=== PATIENT | female | born 2000 | race Two or more races ===

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

== ENCOUNTER 2020-02-03 18:26 | Emergency (ER) | payer MEDICAID, OTHER ==
[2020-02-03] MEDS ORDERED: RINGERS SOLUTION,LACTATED 1,000 ML IV ONE (18:39)
--- NOTE | 2020-02-03 18:41 | ER Document Report ---
ED Medical Screen (RME) - General Chief Complaint: Abdominal Pain Stated Complaint: LEFT SIDED ABDOMINAL PAIN Time Seen by Provider: 02/03/20 18:33 Mode of Arrival: Ambulatory Information source: Patient Notes: HPI; 19-year-old female presents to the emergency room complaining of constant generalized abdominal pain that started around 1 AM today. Denies nausea or vomiting no fevers. Some dysuria. States her abdomen feels "bloated". Has tried taking Gas-X, Tums, and apple cider vinegar without relief. No diarrhea. PE: Alert and oriented x3. Lungs: Clear to auscultation without rales, rhonchi, wheezes. Heart: Regular rate rhythm without murmurs, rubs, gallops. Unable to do full abdominal exam in triage. I have greeted and performed a rapid initial assessment of this patient. A comprehensive ED assessment and evaluation of the patient, analysis of test results and completion of the medical decision making process will be conducted by additional ED providers. I have specifically instructed the patient or family members with the patient to immediately return to any nursing staff should anything change in the patient's condition or with their chief complaint. TRAVEL OUTSIDE OF THE [place] IN LAST 30 DAYS: No - Related Data Allergies/Adverse Reactions: amoxicillin [Amoxicillin] Allergy (Intermediate, Verified 02/03/20 18:33) rash Home Medications: control Past Medical History Renal/ Medical History: Denies: Hx Peritoneal Dialysis Past Surgical History: Reports: Hx Cardiac Surgery - VSD repair - Immunizations Immunizations up to date: Yes Hx Diphtheria, Pertussis, Tetanus Vaccination: Yes Physical Exam - Vital signs Vitals: Temp Pulse Resp BP Pulse Ox 98.4 F 74 16 112/56 L 97 02/03/20 18:33 02/03/20 18:33 02/03/20 18:33 02/03/20 18:33 02/03/20 18:33 Course - Vital Signs Vital signs: Temp Pulse Resp BP Pulse Ox 98.4 F 74 16 112/56 L 97 02/03/20 18:33 02/03/20 18:33 02/03/20 18:33 02/03/20 18:33 02/03/20 18:33
[2020-02-03 20:18] LABS: APPEARANCE,URINE SLIGHTLY-CLOUDY; BILIRUBIN,URINE NEGATIVE (NEGATIVE); COLOR,URINE YELLOW; GLUCOSE, URINE NEGATIVE (NEGATIVE); KETONES,URINE TRACE mg/dL (NEGATIVE); LEUKOCYTE ESTERASE,URINE SMALL (NEGATIVE); NITRITE,URINE NEGATIVE (NEGATIVE); PROTEIN,URINE 30 mg/dL (NEGATIVE); URINE SPECIFIC GRAVITY 1.023; UROBILINOGEN,URINE NEGATIVE mg/dL (<2.0)
[2020-02-03] MEDS ORDERED: DICYCLOMINE HCL INJ 20 MG/2 ML AMPULE IM ONE (20:52)
--- NOTE | 2020-02-03 20:56 | ER Document Report ---
ED General - General Chief Complaint: Abdominal Pain Stated Complaint: LEFT SIDED ABDOMINAL PAIN Time Seen by Provider: 02/03/20 18:33 Mode of Arrival: Ambulatory TRAVEL OUTSIDE OF THE [place] IN LAST 30 DAYS: No - HPI Notes: Patient is a 19-year-old female presents emergency department for evaluation of left-sided abdominal pain. It started 1:00 in the morning. She states "it is a gas pain." She has chronic constipation. She states she gets gas pains like this in the past. She states it was so bad today she actually called off work for today and tomorrow. She denies any fevers or chills. No nausea or vomiting. She is eating and drinking normally. Normal urination. No vaginal discharge or abnormal vaginal bleeding. She denies possibility being . She has tried [id number] laxatives and Gas-X without any significant relief of this pain. She did have a few bowel movements today. - Related Data Allergies/Adverse Reactions: amoxicillin [Amoxicillin] Allergy (Intermediate, Verified 02/03/20 18:33) rash Home Medications: control Past Medical History - General Information source: Patient - Social History Smoking Status: Never Smoker Frequency of alcohol use: None Drug Abuse: None Family History: Reviewed & Not Pertinent, DM, Malignancy Renal/ Medical History: Denies: Hx Peritoneal Dialysis Past Surgical History: Reports: Hx Cardiac Surgery - VSD repair - Immunizations Immunizations up to date: Yes Hx Diphtheria, Pertussis, Tetanus Vaccination: Yes Review of Systems - Review of Systems Constitutional: No symptoms reported EENT: No symptoms reported Cardiovascular: No symptoms reported Respiratory: No symptoms reported Gastrointestinal: See HPI Genitourinary: No symptoms reported Female Genitourinary: No symptoms reported Musculoskeletal: No symptoms reported Skin: No symptoms reported Neurological/Psychological: No symptoms reported -: Yes All other systems reviewed and negative Physical Exam - Vital signs Vitals: Temp Pulse Resp BP Pulse Ox 98.4 F 74 16 112/56 L 97 02/03/20 18:33 02/03/20 18:33 02/03/20 18:33 02/03/20 18:33 02/03/20 18:33 - Notes Notes: Vital signs reviewed, please refer to chart. Head is normocephalic, atraumatic. Pupils equal round, reactive to light. Neck is supple without meningismus. Heart is regular rate and rhythm. Lungs are clear to auscultation bilaterally. Abdomen is soft, diffusely tender without rebound or guarding, normoactive bowel sounds throughout. Extremities without cyanosis, clubbing. Posterior calves are nontender. Peripheral pulses are equal. Skin is warm and dry. Patient is awake, alert, neurological exam is nonfocal. Course - Re-evaluation Re-evalutation: 02/03/20 20:54 Patient presents to the emergency department for evaluation. She complains of abdominal pain that she states is gas pain. She has normal vital signs. She has no other associated symptoms. I do not see any indication for blood work. She is not overly constipated, she actually had multiple bowel movements today. We talked at length about this issue. She states that she has a diet high in fiber, high in water, low in meat and dairy. We talked about IBS with constipation. We talked about referral on to gastroenterology, which I believe is reasonable, especially given the fact that the patient states that she is missing work secondary to this discomfort. She was given Bentyl here. I encouraged her to try MiraLAX to help her with her chronic constipation. I will send her home with a prescription for Bentyl as well. She is given a work excuse and a school excuse. She is to return to the emergency department for worsening or new concerning symptoms of any sort. - Vital Signs Vital signs: Temp Pulse Resp BP Pulse Ox 98.4 F 74 16 112/56 L 97 02/03/20 18:33 02/03/20 18:33 02/03/20 18:33 02/03/20 18:33 02/03/20 18:33 - Laboratory Laboratory results interpreted by me: 02/03/20 19:53 Urine Protein 30 H Urine Ketones TRACE H Ur Leukocyte Esterase SMALL H Urine Ascorbic Acid 20 H Discharge - Discharge Clinical Impression: Left sided abdominal pain, Chronic constipation Condition: Stable Disposition: HOME, SELF-CARE Instructions: Abdominal Pain ([facility]), Constipation ([facility]) Additional Instructions: Avoid excessive meat and dairy, continue high-fiber diet with lots of water. Try [id number] MiraLAX for constipation, it is not habit forming. Try Bentyl as needed for abdominal pain. Follow-up with your primary care provider in 1 to 2 weeks. You should discuss the possibility of referral on to gastroenterology for further evaluation. Return to the emergency department wit h worsening or new concerning symptoms of any sort.
[2020-02-03 21:29] VITALS: BP 107/74
== END 2020-02-03 21:27 | disposition home or self-care (01) ==
LOC: ER 18:26
DX: R10.9 Unspecified abdominal pain (principal); K59.09 Other constipation; Z88.0 Allergy status to penicillin
CPT/HCPCS: 99284; 96372; 81001; J0500